=== PATIENT | female | born 1980 | race Caucasian/White ===

== ENCOUNTER 2017-03-25 11:51 | Emergency (ER) | payer OTHER ==
[2017-03-25 14:36] LABS: ABSOLUTE BASOPHILS # (AUTO) 0.1 10^3/uL (0.0-0.2); ABSOLUTE EOSINOPHILS # (AUTO) 0.2 10^3/uL (0.0-0.6); ABSOLUTE LYMPHOCYTES (AUTO) 1.8 10^3/uL (0.5-4.7); ABSOLUTE MONOCYTES (AUTO) 0.8 10^3/uL (0.1-1.4); ABSOLUTE NEUT (AUTO) 5.3 10^3/uL (1.7-8.2); BASOPHILS % (AUTO) 0.7 % (0-2); EOSINOPHILS % (AUTO) 2.1 % (0-6); HEMATOCRIT 37.5 % (36.0-47.0); HEMOGLOBIN 12.7 g/dL (12.0-15.5); HGB HCT DIFFERENCE 0.6; LYMPHOCYTES % (AUTO) 22.4 % (13-45); MEAN CORPUSCULAR HEMOGLOBIN 28.1 pg (27.0-33.4); MEAN CORPUSCULAR HGB CONC 33.8 g/dL (32.0-36.0); MEAN CORPUSCULAR VOLUME 83 fl (80-97); MONOCYTES % (AUTO) 9.4 % (3-13); RED BLOOD COUNT 4.51 10^6/uL (3.72-5.28); RED CELL DISTRIBUTION WIDTH 13.5 % (11.5-14.0); SEGMENTED NEUTROPHILS % (AUTO) 65.4 % (42-78); WHITE BLOOD COUNT 8.1 10^3/uL (4.0-10.5)
[2017-03-25 14:46] LABS: APPEARANCE,URINE SLIGHTLY-CLOUDY; BILIRUBIN,URINE NEGATIVE (NEGATIVE); GLUCOSE, URINE NEGATIVE (NEGATIVE); KETONES,URINE NEGATIVE (NEGATIVE); LEUKOCYTE ESTERASE,URINE NEGATIVE (NEGATIVE); NITRITE,URINE NEGATIVE (NEGATIVE); PROTEIN,URINE 100 mg/dL (NEGATIVE); URINE SPECIFIC GRAVITY 1.002; UROBILINOGEN,URINE NEGATIVE mg/dL (<2.0)
--- NOTE | 2017-03-25 14:49 | RADIOLOGY REPORT (SQ) ---
EXAM DESCRIPTION: CT HEAD WITHOUT COMPLETED DATE/TIME: 03/25/2017 2:38 pm REASON FOR STUDY: dizzy/vision changes/paresthesias COMPARISON: None. TECHNIQUE: Axial images acquired through the brain without intravenous contrast. Images reviewed wi th bone, brain and subdural windows. Images stored on PACS. All CT scanners at this facility use dose modulation, iterative reconstruction, and/or weight based d osing when appropriate to reduce radiation dose to as low as reasonably achievable (ALARA). [facility]: Dose Right [facility]: CareDose [facility]: Dose Right [facility]: Teradose 4D [facility]: yeppt RADIATION DOSE: Up-to-date CT equipment and radiation dose reduction techniques were employed. CTDIv ol: 64.6 mGy. DLP: 1163 mGy-cm. mGy. LIMITATIONS: None. FINDINGS: VENTRICLES: Normal size and contour. CEREBRUM: No masses. No hemorrhage. No midline shift. No evidence for acute infarction. Normal gra y/white matter differentiation. No areas of low density in the white matter. CEREBELLUM: No masses. No hemorrhage. No alteration of density. No evidence for acute infarction. EXTRAAXIAL SPACES: No fluid collections. No masses. ORBITS AND GLOBE: No intra- or extraconal masses. Normal contour of globe without masses. CALVARIUM: No fracture. PARANASAL SINUSES: No fluid or mucosal thickening. SOFT TISSUES: No mass or hematoma. OTHER: No other significant finding. IMPRESSION: NORMAL BRAIN CT WITHOUT CONTRAST. EVIDENCE OF ACUTE STROKE: NO. COMMENT: Quality ID # [id number]: Final reports with documentation of one or more dose reduction techniques (e.g., Automated exposure control, adjustment of the mA and/or kV according to patient size, use of iterative reconstruction technique) TECHNICAL DOCUMENTATION: JOB ID: [id number] [employer]- All Rights Reserved
[2017-03-25 14:53] LABS: ALANINE AMINOTRANSFERASE 41 U/L (9-52); ALBUMIN 4.8 g/dL (3.5-5.0); ALKALINE PHOSPHATASE 103 U/L (38-126); ANION GAP 11 (5-19); ASPARTATE AMINO TRANSFERASE 28 U/L (14-36); BILIRUBIN,DIRECT 0.4 mg/dL (0.0-0.4); BILIRUBIN,TOTAL 0.6 mg/dL (0.2-1.3); BLOOD UREA NITROGEN 11 mg/dL (7-20); CALCIUM 10.1 mg/dL (8.4-10.2); CARBON DIOXIDE 28 mmol/L (22-30); CHLORIDE 103 mmol/L (98-107); CREATININE RESULT 0.63 mg/dL (0.52-1.25); GLUCOSE 94 mg/dL (75-110); POTASSIUM 4.5 mmol/L (3.6-5.0); SODIUM 141.7 mmol/L (137-145)
--- NOTE | 2017-03-25 15:50 | ER Document Report ---
ED Blood Pressure Problem - General Chief Complaint: High Blood Pressure Stated Complaint: BLOOD PRESSURE ISSUES, FACE TINGLING Time Seen by Provider: 03/25/17 14:04 Mode of Arrival: Ambulatory Information source: Patient Notes: Patient states she has a history of high blood pressure and recently had the dose of her medicine increased. She states she continues to notice that the "bottom number is above 90". Patient states that she has had some tingling on the left side of her face. She states she is worried this may be a stroke because a neighbor recently had a stroke. She denies any other significant problems other than some mild dizziness. Symptoms have been intermittent. Nothing makes it better or worse. They do not radiate. TRAVEL OUTSIDE OF THE [place] IN LAST 30 DAYS: No - Related Data Allergies/Adverse Reactions: No Known Allergies Allergy (Verified 03/25/17 12:04) Home Medications: Current Home Medications Linaclotide [Linzess 145 Mcg Capsule] 145 mcg PO DAILY 03/25/17 [History] Past Medical History - General Information source: Patient - Social History Smoking Status: Never Smoker Chew tobacco use (# tins/day): No Frequency of alcohol use: Occasional Drug Abuse: None Family History: Reviewed & Not Pertinent Patient has suicidal ideation: No Patient has homicidal ideation: No - Past Medical History Cardiac Medical History: Reports: Hx Hypertension Renal/ Medical History: Denies: Hx Peritoneal Dialysis Psychiatric Medical History: Reports: Hx Depression - anxiety Surgical Hx: Negative - Immunizations Hx Diphtheria, Pertussis, Tetanus Vaccination: No Review of Systems - Review of Systems Constitutional: denies: Chills, Fever EENT: denies: Blurred vision, Tearing Cardiovascular: denies: Chest pain, Palpitations -: Yes All other systems reviewed and negative Physical Exam - Vital signs Vitals: Temp Pulse Resp BP Pulse Ox 98.5 F 76 16 142/91 H 100 03/25/17 12:05 03/25/17 12:05 03/25/17 12:05 03/25/17 12:05 03/25/17 12:05 Interpretation: Hypertensive - General General appearance: Appears well, Alert - HEENT Head: Normocephalic, Atraumatic Eyes: Normal Pupils: PERRL - Respiratory Respiratory status: No respiratory distress Chest status: Nontender Breath sounds: Normal Chest palpation: Normal - Cardiovascular Rhythm: Regular Heart sounds: Normal auscultation Murmur: No - Abdominal Inspection: Normal Distension: No distension Bowel sounds: Normal Tenderness: Nontender Organomegaly: No organomegaly - Back Back: Normal, Nontender - Extremities General upper extremity: Normal inspection, Nontender, Normal color, Normal ROM , Normal temperature General lower extremity: Normal inspection, Nontender, Normal color, Normal ROM , Normal temperature, Normal weight bearing. 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 Sensory: Normal - Psychological Associated symptoms: Normal affect, Normal mood - Skin Skin Temperature: Warm Skin Moisture: Dry Skin Color: Normal Course - Vital Signs Vital signs: Temp Pulse Resp BP Pulse Ox 98.5 F 76 16 142/91 H 100 03/25/17 12:05 03/25/17 12:05 03/25/17 12:05 03/25/17 12:05 03/25/17 12:05 - Laboratory Result Diagrams: 03/25/17 14:22 03/25/17 14:22 Laboratory results interpreted by me: 03/25/17 14:22 Urine Protein 100 H Urine Blood LARGE H - Diagnostic Test Radiology reviewed: Image reviewed, Reports reviewed - Head CT shows no evidence of acute pathology Discharge - Discharge Clinical Impression: Paresthesias Condition: Stable Disposition: HOME, SELF-CARE Instructions: High Blood Pressure, Requiring Treatment ([facility]), Numbness or Paresthesia ([facility]) Additional Instructions: Please call your primary care physician as soon as possible to arrange for a recheck. Your blood pressure is mildly elevated and you will need discuss a possible medication change with your physician. Forms: Return to Work
[2017-03-25 16:09] VITALS: BP 135/88
== END 2017-03-25 16:21 | disposition home or self-care (01) ==
LOC: ER 11:51
DX: R20.2 Paresthesia of skin (principal); I10 Essential (primary) hypertension
CPT/HCPCS: 36415; 70450; 80053; 81001; 81025; 85025; 99284

== ENCOUNTER 2018-01-14 14:12 | Outpatient (CLI) | payer OTHER | END 2018-01-14 15:45 | disposition home or self-care (01) | LOC: LC 14:12 | PROVIDERS: ATTEND Obstetrics & Gynecology Gynecology | DX: Z34.93 Encounter for supervision of normal pregnancy, unspecified, third trimester (principal); Z3A.35 35 weeks gestation of pregnancy | CPT/HCPCS: 59025 ==

== ENCOUNTER 2018-02-05 18:34 | Inpatient (IN) | payer OTHER ==
--- NOTE | 2018-02-05 18:36 | Non Stress Test Report ---
Non Stress Test Datetime Report Generated by CPN: 02/05/2018 18:36 DEMOGRAPHIC EGA NST: 35.5 INDICATION Indication for Study: Chronic Hypertension; Ordered by Provider Indication for Study (NST) Other: AMA MONITORING Monitor Explained: Monitor Explained; Test Explained; Patient Verbalized Understanding Time on Monitor: 01/14/2018 14:32 Time off Monitor: 01/14/2018 15:37 NST Duration: 65 NST INTERVENTIONS NST Interventions: Reposition Patient Physician Notified NST: N. Arias, CNM BABY A: [id number] BABY A Movement : Present Contraction Frequency : 0 FHR Baseline : 140 Accelerations : 15X15 Decelerations : None Variability : Moderate 6-25bpm NST Review: Meets Criteria for Reactive NST NST Review and Verified By : LJ GRANADOS RN NST Results: Reactive NST REPORT Report Trigger: Send Report
[2018-02-05 19:12] LABS: ABSOLUTE BASOPHILS # (AUTO) 0.1 10^3/uL (0.0-0.2); ABSOLUTE EOSINOPHILS # (AUTO) 0.1 10^3/uL (0.0-0.6); ABSOLUTE LYMPHOCYTES (AUTO) 1.9 10^3/uL (0.5-4.7); ABSOLUTE MONOCYTES (AUTO) 0.9 10^3/uL (0.1-1.4); BASOPHILS % (AUTO) 0.5 % (0-2); EOSINOPHILS % (AUTO) 0.8 % (0-6); HEMATOCRIT 33.9 % (36.0-47.0); HEMOGLOBIN 11.7 g/dL (12.0-15.5); MEAN CORPUSCULAR HEMOGLOBIN 29.4 pg (27.0-33.4); MEAN CORPUSCULAR HGB CONC 34.4 g/dL (32.0-36.0); MEAN CORPUSCULAR VOLUME 85 fl (80-97); MONOCYTES % (AUTO) 9.4 % (3-13); PLATELET COUNT 315 10^3/uL (150-450); RED BLOOD COUNT 3.97 10^6/uL (3.72-5.28); RED CELL DISTRIBUTION WIDTH 14.1 % (11.5-14.0); SEGMENTED NEUTROPHILS % (AUTO) 70.3 % (42-78); TOTAL CELLS COUNTED % (AUTO) 100 %
[2018-02-05 19:13] LABS: APPEARANCE,URINE CLEAR; BILIRUBIN,URINE NEGATIVE (NEGATIVE); COLOR,URINE STRAW; GLUCOSE, URINE NEGATIVE (NEGATIVE); KETONES,URINE NEGATIVE (NEGATIVE); LEUKOCYTE ESTERASE,URINE NEGATIVE (NEGATIVE); NITRITE,URINE NEGATIVE (NEGATIVE); PROTEIN,URINE NEGATIVE (NEGATIVE); URINE SPECIFIC GRAVITY 1.003; UROBILINOGEN,URINE NEGATIVE mg/dL (<2.0)
[2018-02-05] MEDS ORDERED: RINGERS SOLUTION,LACTATED 300 ML IV ONE (19:54)
[2018-02-05] MEDS ORDERED: ZOLPIDEM TARTRATE 5 MG TABLET PO PRN (19:54)
[2018-02-05] MEDS ORDERED: DINOPROSTONE 10 MG VAGINAL INSERT.SR PV ONE (19:54)
[2018-02-05] MEDS ORDERED: ACETAMINOPHEN 325 MG TABLET PO PRN (19:54)
[2018-02-05] MEDS ORDERED: MAG HYDROX/AL HYDROX/SIMETH SUSP 30 ML UDCUP PO PRN (19:54)
[2018-02-05 20:08] LABS: URINE AMPHETAMINES SCREEN NEGATIVE; URINE BARBITURATES SCREEN NEGATIVE; URINE BENZODIAZEPINES SCREEN NEGATIVE; URINE COCAINE SCREEN NEGATIVE; URINE MARIJUANA (THC) SCREEN NEGATIVE; URINE METHADONE SCREEN NEGATIVE; URINE PHENCYCLIDINE SCREEN NEGATIVE
[2018-02-05] MEDS ORDERED: OXYTOCIN 10 UNIT/ML VIAL ONE (20:11)
[2018-02-05] MEDS ORDERED: MISOPROSTOL 0.2 MG TABLET ONE (20:11)
[2018-02-05] MEDS ORDERED: LIDOCAINE 1% INJ-PF (10 MG/ML) 30 ML SDV ONE (20:11)
[2018-02-05] MEDS ORDERED: DINOPROSTONE 10 MG VAGINAL INSERT.SR ONE (20:12)
[2018-02-05] MEDS ORDERED: OXYTOCIN/NORMAL SALINE 20 UNIT/1,000 ML RTUINJ ONE (20:12)
[2018-02-05] MEDS: RINGERS SOLUTION,LACTATED 1,000 ML IV PRN (20:29)
[2018-02-06] MEDS: RINGERS SOLUTION,LACTATED 1,000 ML IV PRN (06:12)
--- NOTE | 2018-02-06 09:01 | Admission Physical ---
Datetime Report Generated by CPN: 02/06/2018 09:00 CURRENT ADMISSION Chief Complaint: Scheduled Induction of Labor Indication for Induction: Chronic Primary/Essential HTN Admit Impression : Induction of Labor Admit Plan: Admit to Unit ALLERGIES Medication Allergies: No Medication Allergies: No Known Allergies (03/25/2017) Latex: No Latex Allergies OBSTETRICAL HISTORY EDC: 02/13/2018 00:00 : 2 Para: 1 Term: 1 : 0 SAB: 0 IAB: 0 Ectopic: 0 Livin Cesareans: 0 VBACs: 0 Multiple Births: 0 Gestational Diabetes: No Rh Sensitization: No Incompetent Cervix: No CORNELIUS: No Infertility: No ART Treatment: No Uterine Anomaly: No IUGR: No Hx Previous C/S: No Macrosomia: No Hx Loss/Stillborn: No PIH: No Hx : No Placenta Previa/Abruption: No Depression/PP Depression: No PTL/PROM: No Post Hemorrhage: No Current Procedures: Ultrasound; NST Obstetrical History Comments: G1 40 weeks, boy, 7lb 11 oz, induced for poly G2 current SEE RECORDS Alcohol: No Marijuana : No Cocaine: No Other Illicit Drugs: No Cigarettes: Never Smoker. [id number] MEDICAL HISTORY Diabetes: No Blood Transfusion: No Pulmonary Disease (Asthma, TB): No Breast Disease: No Hypertension: Yes Systems Program Manager Surgery: No Heart Disease: No Hosp/Surgery: Yes Autoimmune Disorder: No Anesthetic Complications: No Kidney Disease: No Abnormal Pap Smear: No Neuro/Epilepsy: No Psychiatric Disorders: No Other Medical Diseases: No Hepatitis/Liver Disease: No Significant Family History: No Varicosities/Phlebitis: No Trauma/Violence : No Thyroid Dysfunction: No Medical History Comments: mitral valve prolapse and heart palpatations INFECTIOUS HISTORY Gonorrhea: No Genital Herpes: No Chlamydia: No Tuberculosis: No Syphilis: No Hepatitis: No HIV/AIDS Exposure: No Rash or Viral Illness: No HPV: No PHYSICAL EXAM General: Normal HEENT: Normal Neurologic: Normal Thyroid: Deferred Heart: Normal Lungs: Normal Breast: Deferred Back: Normal Abdomen: Normal Genitourinary Exam: Deferred Extremities: Normal DTRs: Normal Pelvic Type: Adequate Physical Exam Comments: Gravid Proven for 7lbs 11oz Vital Signs: Reviewed; Within Normal Limits MEMBRANES Membranes: Intact FETUS A EGA: 39.0 Monitoring: External US FHR- Baseline: 135 Variability: Moderate 6-25bpm Accelerations: 15X15 FHR Category: Category I Presentation: Vertex Admit Comment: 39 wks Chronic HTN on Toprol Proven for 7lbs 11oz Cervidil through night-will consider Cook's Catheter with Pitocin Antepartum records available PLANS FOR LABOR AND DELIVERY Labor and Delivery: None Pain Management: Epidural Feeding Preference: Breast Benefit of Breast Feed Discussed: Yes Circumcision: N/A INFORMED CONSENT Assignment: Danielle Mathew MD Signature: with User ID: Tracy : with User ID: Tracy : I personally evaluated and examined the patient in conjunction with the MLP and agree with the assessment, treatment plan and disposition.
[2018-02-06] MEDS ORDERED: OXYTOCIN/NORMAL SALINE 20 UNIT/1,000 ML RTUINJ IV PRN (09:48)
[2018-02-06] MEDS ORDERED: METOPROLOL TARTRATE 50 MG TABLET PO SCH (10:00)
[2018-02-06] MEDS ORDERED: METOPROLOL TARTRATE 25 MG TABLET PO SCH (10:00)
[2018-02-06] MEDS ORDERED: NALBUPHINE HCL INJ 10 MG/1 ML AMPULE INJ ONE (14:24)
[2018-02-06] MEDS ORDERED: MISOPROSTOL 0.1 MG TABLET PO ONE (15:58)
[2018-02-06] MEDS ORDERED: MISOPROSTOL 0.1 MG TABLET VG ONE (16:01)
[2018-02-06] MEDS ORDERED: MISOPROSTOL 0.1 MG TABLET ONE (16:14)
[2018-02-06] MEDS ORDERED: DIPHENHYDRAMINE HCL 50 MG/ML VIAL IV ONE (21:04)
[2018-02-06] MEDS ORDERED: DIPHENHYDRAMINE HCL 50 MG/ML VIAL ONE (21:13)
--- NOTE | 2018-02-06 22:15 | L&D Progress Notes ---
PROGRESS NOTES Datetime Report Generated by CPN: 02/06/2018 22:14 PROGRESS NOTE Impression: Normal Progression of Labor Impression: Normal Progression of Labor; Reassuring Heart Rate Procedures: Sterile Vag Exam Procedures: Sterile Vag Exam Plan: Continue Present Management; Induction; Cervical Ripening Plan: Continue Present Management; Induction; Cervical Ripening Informed Consent Obtained: Vaginal Delivery; Induction of Labor Informed Consent Obtained: Vaginal Delivery; Induction of Labor; Risks, Benefits and Alternatives Discussed Vital Signs : Reviewed Comment: 37yo at 39+0ega presents for IOL on 02/05 and was given cervidil. Upon evaluation this am. cvx only 1cm at time of cervidil removal and reviewed options with patient. Pitocin initiated for continued IOL and will possibly attempt Cooks catheter later today if cervix becomes for favorable. Now cvx a little softer but still 06/06/ and reviewed options with patient. Plan for stop pitocin and plan for po/pv cytotec for several doses if baby tolerates. If improvement in cervical exam plan for cooks catheter and revisit pitocin after 2-3 doses of cytotec. VAGINAL EXAM Dilatation: 1 Effacement: 25 Station: hi MEMBRANES Membranes: Intact Membranes: Intact FETUS A FHR - Baseline: 145 Monitoring: External US Decelerations: None FHR Category: Category I : 39.0 Presentation: Vertex SIGNATURE SIGNATURE: [id number];[id number];[id number] SIGNATURE: [id number];[id number] SIGNATURE: [id number] Signature: with User ID: [email or web address] : I personally evaluated and examined the patient in conjunction with the MLP and agree with the assessment, treatment plan and disposition.
[2018-02-06] MEDS ORDERED: METOPROLOL TARTRATE 50 MG TABLET PO ONE (23:45)
[2018-02-07] MEDS ORDERED: NALBUPHINE HCL INJ 10 MG/1 ML AMPULE ONE ×2 (07:39→15:40)
--- NOTE | 2018-02-07 13:08 | L&D Progress Notes ---
PROGRESS NOTES Datetime Report Generated by CPN: 02/07/2018 13:08 PROGRESS NOTE Impression: Reassuring Heart Rate Plan: Continue Present Management; Induction Comment: Cat 1 strip, uc's q 2-3 min, FETUS A Monitoring: External US FETUS C SIGNATURE: [id number];[id number];[id number] Assignment: Mike Bruce MD Signature: with User ID: [email or web address] : with User ID: [email or web address]
--- NOTE | 2018-02-07 15:45 | L&D Progress Notes ---
PROGRESS NOTES Datetime Report Generated by CPN: 02/07/2018 15:45 PROGRESS NOTE Impression: Normal Progression of Labor; Reassuring Heart Rate Procedures: Scalp Electrode; Sterile Vag Exam Procedures- Other: srom, light mec Plan: Continue Present Management; Augmentation Informed Consent Obtained: Vaginal Delivery Vital Signs : Reviewed Comment: pt crying, had a pop and pain started, VE, mod light mec, balloon removed, 2/100/vtx/0, + mec, pt crying, cannot take this anymore, FSE applied, uc's q 2-3 x 60 sec, will give Nubain 10 mg IVP and request epidural, Cat 1 strip FETUS C SIGNATURE: [id number];[id number];[id number] Assignment: Mike Bruce MD Signature: with User ID: [email or web address] : with User ID: [email or web address]
[2018-02-07] MEDS ORDERED: NALBUPHINE HCL INJ 10 MG/1 ML AMPULE IV ONE (15:46)
[2018-02-07] MEDS ORDERED: FENTANYL CITRATE INJ/PF 100 MCG/2 ML AMPUL ONE (15:51)
[2018-02-07] MEDS ORDERED: PHENYLEPHRINE HCL INJ/PF 10 MG/1 ML SDV ONE (15:51)
[2018-02-07] MEDS ORDERED: EPHEDRINE SULFATE INJ 50 MG/1 ML AMPULE ONE (15:51)
[2018-02-07] MEDS ORDERED: BUPIVACAINE HCL 0.5 % INJ/PF 30 ML SDV ONE (15:51)
[2018-02-07] MEDS ORDERED: FENTANYL/BUPIVACAINE/NS/PF 0 MCG/0 ML RTUINJ EPI ONE (15:52)
[2018-02-07 16:23] LABS: ABSOLUTE BASOPHILS # (AUTO) 0.1 10^3/uL (0.0-0.2); ABSOLUTE LYMPHOCYTES (AUTO) 1.7 10^3/uL (0.5-4.7); ABSOLUTE MONOCYTES (AUTO) 0.8 10^3/uL (0.1-1.4); ABSOLUTE NEUT (AUTO) 6.3 10^3/uL (1.7-8.2); EOSINOPHILS % (AUTO) 0.5 % (0-6); HEMATOCRIT 33.3 % (36.0-47.0); HEMOGLOBIN 11.3 g/dL (12.0-15.5); LYMPHOCYTES % (AUTO) 18.9 % (13-45); MEAN CORPUSCULAR HEMOGLOBIN 28.7 pg (27.0-33.4); MEAN CORPUSCULAR HGB CONC 33.9 g/dL (32.0-36.0); MEAN CORPUSCULAR VOLUME 85 fl (80-97); MONOCYTES % (AUTO) 9.1 % (3-13); PLATELET COUNT 222 10^3/uL (150-450); RED BLOOD COUNT 3.93 10^6/uL (3.72-5.28); RED CELL DISTRIBUTION WIDTH 14.3 % (11.5-14.0); SEGMENTED NEUTROPHILS % (AUTO) 70.5 % (42-78); TOTAL CELLS COUNTED % (AUTO) 100 %; WHITE BLOOD COUNT 8.9 10^3/uL (4.0-10.5)
[2018-02-07] MEDS ORDERED: MEASLES,MUMPS&RUBELLA VACC/PF 0.5 ML VIAL SUBCUT PRN (17:03)
[2018-02-07] MEDS ORDERED: MAGNESIUM HYDROXIDE SUSP 30 ML UDCUP PO PRN (17:03)
[2018-02-07] MEDS ORDERED: DIPHENHYDRAMINE HCL 25 MG CAPSULE PO PRN (17:03)
[2018-02-07] MEDS ORDERED: OXYTOCIN/NORMAL SALINE 20 UNIT/1,000 ML RTUINJ IV PRN (17:03)
[2018-02-07] MEDS ORDERED: ACETAMINOPHEN 650 MG SUPP.RECT PR PRN (17:03)
[2018-02-07] MEDS ORDERED: ACETAMINOPHEN WITH CODEINE #3 TABLET PO PRN ×2 (17:03)
[2018-02-07] MEDS ORDERED: PROMETHAZINE HCL 25 MG SUPP.RECT PR PRN (17:03)
[2018-02-07] MEDS ORDERED: PROMETHAZINE HCL INJ 25 MG/1 ML VIAL IV PRN (17:03)
[2018-02-07] MEDS ORDERED: BENZOCAINE/MENTHOL AEROSOL SPRAY 56 ML TOP PRN (17:03)
[2018-02-07] MEDS ORDERED: DIBUCAINE 1% OINTMENT 28 GM TP PRN (17:03)
[2018-02-07] MEDS ORDERED: PROMETHAZINE HCL 25 MG TABLET PO PRN (17:03)
[2018-02-07] MEDS ORDERED: GLYCERIN/WITCH HAZEL LEAF 1 EACH MED..PAD TP PRN (17:03)
[2018-02-07] MEDS ORDERED: NA PHOS,M-B/NA PHOS,DI-BA (ADULT) 133 ML ENEMA PR PRN (17:03)
[2018-02-07] MEDS ORDERED: PSEUDOEPHEDRINE HCL 30 MG TABLET PO PRN (17:03)
[2018-02-07] MEDS ORDERED: ZOLPIDEM TARTRATE 5 MG TABLET PO PRN (17:03)
[2018-02-07] MEDS ORDERED: DIPH/PERTUSS(ACELL)/TETANUS VAC/PF 0.5 ML SYR (>=10YO) IM PRN (17:03)
[2018-02-07] MEDS ORDERED: OXYTOCIN/NORMAL SALINE 20 UNIT/1,000 ML RTUINJ ONE (17:31)
[2018-02-07] MEDS: DOCUSATE SODIUM 100 MG CAPSULE PO SCH (21:37)
[2018-02-07] MEDS: FERROUS SULFATE 325 MG TABLET PO SCH (21:37)
[2018-02-07] MEDS: IBUPROFEN 800 MG TABLET PO SCH (21:53)
[2018-02-07] MEDS: METOPROLOL TARTRATE 50 MG TABLET PO SCH (21:54)
[2018-02-07] MEDS ORDERED: FAMOTIDINE 20 MG TABLET PO SCH (22:00)
[2018-02-08] MEDS: IBUPROFEN 800 MG TABLET PO SCH ×3 (06:43→21:35)
[2018-02-08 08:19] LABS: HEMATOCRIT 29.7 % (36.0-47.0); HEMOGLOBIN 10.2 g/dL (12.0-15.5); MEAN CORPUSCULAR HEMOGLOBIN 29.6 pg (27.0-33.4); MEAN CORPUSCULAR HGB CONC 34.3 g/dL (32.0-36.0); MEAN CORPUSCULAR VOLUME 86 fl (80-97); PLATELET COUNT 268 10^3/uL (150-450); RED BLOOD COUNT 3.45 10^6/uL (3.72-5.28); RED CELL DISTRIBUTION WIDTH 14.1 % (11.5-14.0); WHITE BLOOD COUNT 9.9 10^3/uL (4.0-10.5)
--- NOTE | 2018-02-08 09:11 | PDOC PROGRESS REPORT ---
Subjective-OB Progress Note for:: 02/08/18 Subjective: Doing much better, eating bkf, cramps when Physical Exam (OB) Vital Signs: Temp Pulse Resp BP Pulse Ox 98.1 F 73 18 139/88 H 99 02/08/18 08:23 02/08/18 08:23 02/08/18 08:23 02/08/18 08:23 02/08/18 08:23 - PIH/Pre-Eclampsia DTR's: 2 + Clonus: Negative Headache: Absent Epigastric Pain: No Visual Changes: No - Lochia Lochia Amount: Small 10-25 ml Lochia Color: Rubra/Red - Abdomen Description: Tender, Soft, Round Hernia Present: No Fundal Description: Firm, Midline Fundal Height: u/u - u/2 Objective-Diagnostic Laboratory: 02/08/18 07:46 02/07/18 02/08/18 16:10 07:46 WBC 8.9 9.9 RBC 3.93 3.45 L Hgb 11.3 L 10.2 L Hct 33.3 L 29.7 L MCV 85 86 MCH 28.7 29.6 MCHC 33.9 34.3 RDW 14.3 H 14.1 H Plt Count 222 268 Seg Neutrophils % 70.5 Lymphocytes % 18.9 Monocytes % 9.1 Eosinophils % 0.5 Basophils % 1.0 Absolute Neutrophils 6.3 Absolute Lymphocytes 1.7 Absolute Monocytes 0.8 Absolute Eosinophils 0.0 Absolute Basophils 0.1 Assessment and Plan(PN) - Assessment and Plan (1) Meconium in amniotic fluid Is this a current diagnosis for this admission?: Yes (2) Normal vaginal delivery Is this a current diagnosis for this admission?: Yes (3) Hypertension affecting Qualifiers: Trimester: third trimester Qualified Code(s): O16.3 - Unspecified maternal hypertension, third trimester Is this a current diagnosis for this admission?: Yes (4) Advanced maternal age (AMA) in Is this a current diagnosis for this admission?: Yes - Time Spent with Patient Time with patient: Less than 15 minutes Medications reviewed and adjusted accordingly: Yes - Disposition Anticipated Discharge: Home Within: within 24 hours
[2018-02-08] MEDS ORDERED: PRENATAL VITAMIN W DHA CAPSULE PO SCH (10:00)
[2018-02-08] MEDS: FERROUS SULFATE 325 MG TABLET PO SCH ×2 (10:13→17:57)
[2018-02-08] MEDS: SENNOSIDES/DOCUSATE 8.6-50 MG 1 EACH TABLET PO SCH (10:13)
[2018-02-08] MEDS: DOCUSATE SODIUM 100 MG CAPSULE PO SCH ×2 (10:14→17:57)
[2018-02-09] MEDS: METOPROLOL TARTRATE 50 MG TABLET PO SCH (03:33)
[2018-02-09] MEDS: IBUPROFEN 800 MG TABLET PO SCH ×2 (06:14→13:14)
[2018-02-09 08:56] VITALS: BP 134/71
[2018-02-09] MEDS: SENNOSIDES/DOCUSATE 8.6-50 MG 1 EACH TABLET PO SCH (09:34)
[2018-02-09] MEDS: DOCUSATE SODIUM 100 MG CAPSULE PO SCH ×2 (09:34→17:35)
[2018-02-09] MEDS: FERROUS SULFATE 325 MG TABLET PO SCH ×2 (09:34→17:28)
--- NOTE | 2018-02-09 10:15 | PDOC PROGRESS REPORT ---
Subjective-OB Progress Note for:: 02/09/18 Subjective: sleeping, tired, not much rest, ready to go home, unsure if baby is going, jaundice Physical Exam (OB) Vital Signs: Temp Pulse Resp BP Pulse Ox 98.0 F 66 18 134/71 H 100 02/09/18 08:54 02/09/18 08:54 02/09/18 08:54 02/09/18 08:54 02/09/18 08:54 Intake & Output 02/08/18 02/09/18 02/10/18 06:59 06:59 06:59 Intake Total 1000 Balance 1000 - PIH/Pre-Eclampsia DTR's: 2 + Clonus: Negative Headache: Absent Epigastric Pain: No Visual Changes: No - Lochia Lochia Amount: Scant < 10 ml Lochia Color: Rubra/Red - Abdomen Description: Tender, Soft, Round Hernia Present: No Fundal Description: Firm, Midline Fundal Height: u/u - u/2 Objective-Diagnostic Laboratory: 02/08/18 07:46 Assessment and Plan(PN) - Assessment and Plan (1) Meconium in amniotic fluid Is this a current diagnosis for this admission?: Yes (2) Normal vaginal delivery Is this a current diagnosis for this admission?: Yes (3) Hypertension affecting Qualifiers: Trimester: third trimester Qualified Code(s): O16.3 - Unspecified maternal hypertension, third trimester Is this a current diagnosis for this admission?: Yes (4) Advanced maternal age (AMA) in Is this a current diagnosis for this admission?: Yes - Time Spent with Patient Time with patient: Less than 15 minutes Medications reviewed and adjusted accordingly: Yes - Disposition Anticipated Discharge: Home Within: Other - home today
--- NOTE | 2018-02-09 10:20 | PDOC DISCHARGE SUMMARY ---
Final Diagnosis Discharge Date: 02/09/18 - Final Diagnosis (1) Meconium in amniotic fluid Is this a current diagnosis for this admission?: Yes (2) Normal vaginal delivery Is this a current diagnosis for this admission?: Yes (3) Hypertension affecting Is this a current diagnosis for this admission?: Yes (4) Advanced maternal age (AMA) in Is this a current diagnosis for this admission?: Yes Discharge Data - Discharge Medication Prescriptions: Metoprolol Tartrate [Lopressor 50 mg Tablet] 50 mg PO QHS #30 tablet Ferrous Sulfate [Feosol 325 mg Tablet] 325 mg PO BID #60 tablet Ibuprofen [Motrin 800 mg Tablet] 800 mg PO Q8 #60 tablet Home Medications: Pnv No.95/Ferrous Fum/Folic AC [ Vitamins Tablet] 1 each PO DAILY Ferrous Sulfate [Feosol 325 mg Tablet] 325 mg PO BID #60 tablet 02/09/18 Ibuprofen [Motrin 800 mg Tablet] 800 mg PO Q8 #60 tablet 02/09/18 Metoprolol Tartrate [Lopressor 50 mg Tablet] 50 mg PO QHS #30 tablet 02/09/18 Gestational Age: 39 Reason(s) for Admission: Induction of Labor, PIH, Advanced Maternal Age Procedures: NST, Ultrasound Intrapartum Procedure(s): Spontaneous Vaginal Delivery Complication(s): Laceration-Perineal - Data Baby 1 Female Home with Mother: Yes Complications: No - Diagnosis Test Laboratory: Temp Pulse Resp BP Pulse Ox 98.0 F 66 18 134/71 H 100 02/09/18 08:54 02/09/18 08:54 02/09/18 08:54 02/09/18 08:54 02/09/18 08:54 02/05/18 02/05/18 02/07/18 18:43 19:00 16:10 RBC 3.97 3.93 Hgb 11.7 L 11.3 L Hct 33.9 L 33.3 L Urine Opiates Screen NEGATIVE 02/08/18 07:46 RBC 3.45 L Hgb 10.2 L Hct 29.7 L Urine Opiates Screen - Discharge information/Instructions Discharge Activity: Activity As Tolerated, Balance Activity w/Rest, No Lifting Over 10 Pounds, No Lifting/Push/Pulling, Pelvic Rest, No tub bath Discharge Diet: As Tolerated, Regular Disposition: HOME, SELF-CARE Follow up with: [facility] in: 1, Weeks
--- NOTE | 2018-02-14 08:31 | Delivery Summary ---
Del Sum A-C Datetime Report Generated by CPN: 02/14/2018 08:31 DELIVERY PERSONNEL DELIVERY PERSONNEL: [id number] Delivery Doctor:: Morelia Lou CNM Labor and Delivery Nurse:: Saroj Box RN Nursery Nurse:: Kaley Mccarthy RN Chemistry Tutor/DIGITAL STRATEGY SPECIALIST: María Alonzo CST Chemistry Tutor/DIGITAL STRATEGY SPECIALIST: Cindy Minor CST Additional Personnel: : Latanya Marcos RN MATERNAL INFORMATION Delivery Anesthesia: None Medications After Delivery: Pitocin Drip 20 Units/1000ml NSS Maternal Complications: Precipitous Labor (<3hrs) Provider Comments: pt progressed quickly and pushing, viable male from OA to BRIANNA over intact perineum, superficial perineal lac, compound hand and Tight nuchal cord x 1, reduced after delivery, baby place on mothers abd, cord clamped and cut by father after 2 minutes. spont delivery of mec stained placenta, 3 vc, intact. FFFM, masssage and Pitocin Mom and baby in recovery in stable condition LABOR SUMMARY EDC: 02/13/2018 00:00 No. Babies in Womb: 1 Attempted: No Labor Anesthesia: None LABOR INFORMATION Reason for Induction: Chronic Primary/Essential HTN Onset of Labor: 02/07/2018 15:30 Complete Dilatation: 02/07/2018 16:33 Cervical Ripening Agents: Cervidil; Cytotec @ Cervical Ripening Agents: Cytotec @ 0.025mg Cervical Ripening Agents: Cervidil Oxytocin: Induction Group B Beta Strep: Negative Antibiotics # of Doses: 0 Antibiotics Time of Last Dose: N/A Name of Antibiotic Given: N/A Other Reason Not Administered: N/A MEMBRANES Membranes Rupture Method: Spontaneous Rupture of Membranes: 02/07/2018 15:30 Length of Rupture (hr): 1.23 Amniotic Fluid Color: Moderate Meconium Amniotic Fluid Amount: Small Amniotic Fluid Odor: None STAGES OF LABOR Stage 1 hr: 1 Stage 1 min: 3 Stage 2 hr: 0 Stage 2 min: 11 Stage 3 hr: 0 Stage 3 min: 8 Total Time in Labor hr: 1 Total Time in Labor min: 22 VAGINAL DELIVERY Episiotomy: None Laceration #1: Perineal Laceration Extension #1: N/A Laceration Repair: Not Applicable BABY A INFORMATION Delivery Date/Time: 02/07/2018 16:44 Method of Delivery: Vaginal Born in Route : No : N/A Forceps: N/A Vacuum Extraction: N/A Shoulder Dystocia : No PRESENTATION/POSITION BABY A Presentation: Cephalic Cephalic Presentation: Vertex Vertex Position: Left Occipital Anterior Breech Presentation: N/A PLACENTA INFORMATION BABY A Placenta Delivery Time : 02/07/2018 16:52 Placenta Method of Delivery: Spontaneous Placenta Status: Delivered SCORES BABY A Heart Rate 1 min: >100 bpm Resp Effort 1 min: Good Cry Reflex Irritability 1 min: Cough or Sneeze or Pulls Away Muscle Tone 1 min: Active Motion Color 1 min: Body [place], Extremities Blue Resuscitation Effort 1 min: Tactile Stimulation SCORE 1 MIN: 9 Heart Rate 5 min: >100 bpm Resp Effort 5 min: Good Cry Reflex Irritability 5 min: Cough or Sneeze or Pulls Away Muscle Tone 5 min: Active Motion Color 5 min: Body [place], Extremities Blue Resuscitation Effort 5 min: Tactile Stimulation SCORE 5 MIN: 9 INFORMATION BABY A Gestational Age at Delivery: 39.1 Gestational Status: Full Term- 39- 40.6 Weeks Infant Outcome : Liveborn Condition : Stable Sex: Female IDENTIFICATION BABY A Infant Verification Date/Time: 02/07/2018 17:18 ID Band Number: [id number] Mother's Name Verified: Yes RN Verifying : Ehsan EFRAÍN Additional Verifying Personnel: J.Field RN WEIGHT/LENGTH BABY A Birthweight (gm): 3380 Weight (lb): 7 Weight (oz): 7 Infant Length (in): 20.00 Length (cm): 50.80 CORD INFORMATION BABY A No. Cord Vessels: 3 Nuchal Cord : N/A Nuchal Cord- Other: compound hand Cord Blood Taken: Yes-For Storage (Mom's Blood type +) Suction: Mouth ASSESSMENT BABY A Infant Complications: None Physical Findings at Delivery: Within Normal Limits Respirations: Appears Normal Skin to Skin: Yes Skin to Skin Time (min): 90 Typing Pool Supervisor/ALS Called : No Infant Care By: Agatha Hemant, EFRAÍN Transferred To: Remains with Mother BABY B INFORMATION : N/A SIGNATURES : I personally evaluated and examined the patient in conjunction with the MLP and agree with the assessment, treatment plan and disposition.
--- NOTE | 2018-02-14 08:33 | Delivery Summary ---
Del Sum A-C Datetime Report Generated by CPN: 02/14/2018 08:33 DELIVERY PERSONNEL DELIVERY PERSONNEL: [id number] Delivery Doctor:: Morelia Lou CNM Labor and Delivery Nurse:: Saroj Box RN Nursery Nurse:: Kaley Mccarthy RN Public Health Nutritionist/INSPECTION AND TESTING SUPERVISOR: María Alonzo CST Public Health Nutritionist/INSPECTION AND TESTING SUPERVISOR: Cindy Minor CST Additional Personnel: : Latanya Marcos RN MATERNAL INFORMATION Delivery Anesthesia: None Medications After Delivery: Pitocin Drip 20 Units/1000ml NSS Maternal Complications: Precipitous Labor (<3hrs) Provider Comments: pt progressed quickly and pushing, viable male from OA to BRIANNA over intact perineum, superficial perineal lac, compound hand and Tight nuchal cord x 1, reduced after delivery, baby place on mothers abd, cord clamped and cut by father after 2 minutes. spont delivery of mec stained placenta, 3 vc, intact. FFFM, masssage and Pitocin Mom and baby in recovery in stable condition LABOR SUMMARY EDC: 02/13/2018 00:00 No. Babies in Womb: 1 Attempted: No Labor Anesthesia: None LABOR INFORMATION Reason for Induction: Chronic Primary/Essential HTN Onset of Labor: 02/07/2018 15:30 Complete Dilatation: 02/07/2018 16:33 Cervical Ripening Agents: Cervidil; Cytotec @ Cervical Ripening Agents: Cytotec @ 0.025mg Cervical Ripening Agents: Cervidil Oxytocin: Induction Group B Beta Strep: Negative Antibiotics # of Doses: 0 Antibiotics Time of Last Dose: N/A Name of Antibiotic Given: N/A Other Reason Not Administered: N/A MEMBRANES Membranes Rupture Method: Spontaneous Rupture of Membranes: 02/07/2018 15:30 Length of Rupture (hr): 1.23 Amniotic Fluid Color: Moderate Meconium Amniotic Fluid Amount: Small Amniotic Fluid Odor: None STAGES OF LABOR Stage 1 hr: 1 Stage 1 min: 3 Stage 2 hr: 0 Stage 2 min: 11 Stage 3 hr: 0 Stage 3 min: 8 Total Time in Labor hr: 1 Total Time in Labor min: 22 VAGINAL DELIVERY Episiotomy: None Laceration #1: Perineal Laceration Extension #1: N/A Laceration Repair: Not Applicable BABY A INFORMATION Delivery Date/Time: 02/07/2018 16:44 Method of Delivery: Vaginal Born in Route : No : N/A Forceps: N/A Vacuum Extraction: N/A Shoulder Dystocia : No PRESENTATION/POSITION BABY A Presentation: Cephalic Cephalic Presentation: Vertex Vertex Position: Left Occipital Anterior Breech Presentation: N/A PLACENTA INFORMATION BABY A Placenta Delivery Time : 02/07/2018 16:52 Placenta Method of Delivery: Spontaneous Placenta Status: Delivered SCORES BABY A Heart Rate 1 min: >100 bpm Resp Effort 1 min: Good Cry Reflex Irritability 1 min: Cough or Sneeze or Pulls Away Muscle Tone 1 min: Active Motion Color 1 min: Body [place], Extremities Blue Resuscitation Effort 1 min: Tactile Stimulation SCORE 1 MIN: 9 Heart Rate 5 min: >100 bpm Resp Effort 5 min: Good Cry Reflex Irritability 5 min: Cough or Sneeze or Pulls Away Muscle Tone 5 min: Active Motion Color 5 min: Body [place], Extremities Blue Resuscitation Effort 5 min: Tactile Stimulation SCORE 5 MIN: 9 INFORMATION BABY A Gestational Age at Delivery: 39.1 Gestational Status: Full Term- 39- 40.6 Weeks Infant Outcome : Liveborn Condition : Stable Sex: Female IDENTIFICATION BABY A Infant Verification Date/Time: 02/07/2018 17:18 ID Band Number: [id number] Mother's Name Verified: Yes RN Verifying : Ehsan EFRAÍN Additional Verifying Personnel: J.Field RN WEIGHT/LENGTH BABY A Birthweight (gm): 3380 Weight (lb): 7 Weight (oz): 7 Infant Length (in): 20.00 Length (cm): 50.80 CORD INFORMATION BABY A No. Cord Vessels: 3 Nuchal Cord : N/A Nuchal Cord- Other: compound hand Cord Blood Taken: Yes-For Storage (Mom's Blood type +) Suction: Mouth ASSESSMENT BABY A Infant Complications: None Physical Findings at Delivery: Within Normal Limits Respirations: Appears Normal Skin to Skin: Yes Skin to Skin Time (min): 90 Hot Car Charger/ALS Called : No Infant Care By: Agatha Hemant, EFRAÍN Transferred To: Remains with Mother BABY B INFORMATION : N/A SIGNATURES : I personally evaluated and examined the patient in conjunction with the MLP and agree with the assessment, treatment plan and disposition.
== END 2018-02-09 18:56 | disposition home or self-care (01) | DRG 774 ==
LOC: LR 18:34 → 2S 02-07 19:55
PROVIDERS: ADMIT Obstetrics & Gynecology Gynecology; ATTEND Obstetrics & Gynecology Gynecology
PROC: 3E0P7VZ Introduction of Hormone into Female Reproductive, Via Natural or Artificial Opening (ICD-10-PCS; 2018-02-05)
PROC: 4A1HXCZ Monitoring of Products of Conception, Cardiac Rate, External Approach (ICD-10-PCS; 2018-02-05)
PROC: 10E0XZZ Delivery of Products of Conception, External Approach (ICD-10-PCS; principal; 2018-02-07)
PROC: 3E033VJ Introduction of Other Hormone into Peripheral Vein, Percutaneous Approach (ICD-10-PCS; 2018-02-07)
PROC: 4A1H7CZ Monitoring of Products of Conception, Cardiac Rate, Via Natural or Artificial Opening (ICD-10-PCS; 2018-02-07)
PROC: 10H073Z Insertion of Monitoring Electrode into Products of Conception, Via Natural or Artificial Opening (ICD-10-PCS; 2018-02-07)
DX: O10.02 Pre-existing essential hypertension complicating childbirth (principal); O77.0 Labor and delivery complicated by meconium in amniotic fluid; O62.3 Precipitate labor; O32.6XX0 Maternal care for compound presentation, not applicable or unspecified; O69.1XX0 Labor and delivery complicated by cord around neck, with compression, not applicable or unspecified; Z3A.39 39 weeks gestation of pregnancy; Z37.0 Single live birth
CPT/HCPCS: 36415; 80307; 81001; 85025; 85027; 86592; 86850; 86900; 86901; 94760; C1726; J1200; J2300; J2370; J2590; J3010; J3490

== ENCOUNTER → 2020-05-21 | Outpatient (CLI) | payer OTHER ==
[2020-05-21 12:58] LABS: HEMATOCRIT 37.1 % (36.0-47.0); HEMOGLOBIN 12.5 g/dL (12.0-15.5); MEAN CORPUSCULAR HEMOGLOBIN 28.4 pg (27.0-33.4); MEAN CORPUSCULAR HGB CONC 33.8 g/dL (32.0-36.0); MEAN CORPUSCULAR VOLUME 84 fl (80-97); PLATELET COUNT 341 10^3/uL (150-450); RED BLOOD COUNT 4.42 10^6/uL (3.72-5.28); RED CELL DISTRIBUTION WIDTH 13.2 % (11.5-14.0); WHITE BLOOD COUNT 6.2 10^3/uL (4.0-10.5)
[2020-05-21 13:01] LABS: ANION GAP 5 (5-19); BLOOD UREA NITROGEN 13 mg/dL (7-20); CALCIUM 9.9 mg/dL (8.4-10.2); CARBON DIOXIDE 32 mmol/L (22-30); CHLORIDE 101 mmol/L (98-107); GLUCOSE 93 mg/dL (75-110); POTASSIUM 4.8 mmol/L (3.6-5.0)
== END ==
LOC: OD 11:47
PROVIDERS: ATTEND Physician Assistant
DX: I10 Essential (primary) hypertension (principal); R00.2 Palpitations
CPT/HCPCS: 36415; 80048; 83735; 84443; 85027